=== PATIENT | male | born 1945 | race Caucasian/White ===

== ENCOUNTER → 2019-01-18 11:24 | Outpatient (CLI) | payer MEDICARE, OTHER ==
[2015-12-05 05:56] VITALS: BMI 30.4
[~2019-01-18 11:24] MED LIST: ALPHA LIPOIC; AMLODIPINE-ATO1 EAC9 PO; BAYER ASPIRIN325 MG PO; CITICOLINE PO; CO Q-10150 MG; CO Q-1030 MG; ECOTRIN325 MG PO; FISH OIL 1,0001 CA1 PO; FOLATE0.4 MG PO; GABAPENTIN100 MG PO; MULTIPLE VITAMI1 TA1; NEURONTIN 300300 MG PO; OMEGA-3100 MG; PLAVIX75 MG PO; PRINIVIL20 MG PO; TOPROL XL25 MG PO; TOPROL XL50 MG PO; VITAMIN B COMPL1 TAB; VITAMIN C250 MG PO; VITAMIN D3400 UNI1 PO; VITAMIN E200 UNI1 PO
--- NOTE | 2019-01-24 13:26 | EC ---
PATIENT:OFELIA LR DATE OF SERVICE: 01/18/19 SEX: M MEDICAL RECORD: [id number] DATE OF : 47 LOCATION:[facility] AGE OF PATIENT: 73 ADMISSION DATE: 01/18/19 REFERRING PHYSICIAN: INTERPRETING PHYSICIAN: ASIA RABAGO MD ECHOCARDIOGRAM REPORT ECHO CHARGES 4 ECHO COMPLETE Date: 01/18/19 CLINICAL DIAGNOSIS: CAD/ANGINA/MURMUR HX OF MR/HTN ECHOCARDIOGRAPHIC MEASUREMENTS (adult normal given) AC root (d.<3.7cm) 3.8 cm LV Septum d (<1.2 cm> 1.6 cm Valve Excursion 1.8 cm LV Septum (systole) 2.3 cm Left Atria (s.<4.0cm> 4.0 cm LVPW d(<1.2cm) 2.1 cm RV (d.<2.3cm) 3.4 cm LVPW (sytole) 2.5 cm LV diastole(<5.6CM) 5.3 cm MV E-F(>70mm/sec) cm LV systole 2.8 cm LVOT Diameter 1.9 cm MV exc.(>10mm) 1.3 cm Est.ejection fraction (50-75%) % DOPPLER: LVIT cm/sec A 105 cm/sec E 79.0 cm/sec LA cm/sec RVSP 29 mmHg LVOT 139 cm/sec AOP1/2T m/s Asc. Ao 170 cm/sec RVOT 104 cm/sec RA cm/sec PA 116 cm/sec AV Gradient Peak 11.57mmHg AV Mean 6.66 mmHg AV Area 2.4 cm MV Gradient Peak 4.63 mmHg MV Mean 1.22 mmHg MV Area cm COMMENTS: Lab Engineer: 2 MARICEL JAIN Door Closer Mechanic: 3 Dr. Jackson TAPE# PACS Pericardial Effusion N DATE OF SERVICE: Adequate 2D, color flow imaging, spectral Doppler, and M-Mode LVH is present. LV internal dimensions are normal. Wall motion is normal. EF is greater than or equal to 55%. Aortic valve is sclerosed without evidence of stenosis by Doppler interrogation. Left atrium is normal at 4.8 cm. Mitral valve shows no prolapse. Trace MR. Right-sided chambers are grossly normal. Trace TR. ECHOCARDIOGRAM REPORT [id number] OFELIA LR TRANSINT:[id number] Voice Confirmation ID: [id number] DOCUMENT ID: [id number] ASIA RABAGO MD at 1326 CC: [id number] DICTATION DATE: 01/19/19 131 HUMANITIES PROFESSOR: 01/19/19 1444 [facility]P CLI 01/18/19 [place] [id number] [place] [id number]
== END | disposition home or self-care (01) ==
LOC: D.HCCARDIO 11:24
PROVIDERS: ATTEND Internal Medicine Interventional Cardiology
DX: I25.10 Atherosclerotic heart disease of native coronary artery without angina pectoris (principal)

== ENCOUNTER → 2019-01-20 08:41 | Outpatient (CLI) | payer MEDICARE, OTHER ==
[2015-12-05 05:56] VITALS: BMI 30.4
--- NOTE | ~2019-01-20 | ST ---
PATIENT:OFELIA LR MEDICAL RECORD: [id number] SEX: M LOCATION:[facility] ORDER #: ADMISSION DATE: 01/20/19 AGE OF PATIENT: 73 REFERRING PHYSICIAN: INTERPRETING PHYSICIAN: ROBBIE MENDOZA MD DATE OF SERVICE: 01/20/2019 Nuclear Stress Test INDICATIONS: Angina and coronary artery disease, hypertension, and hyperlipidemia. He was exercised on a standard Lexiscan protocol with 30 mCi of sestamibi injected at peak stress, 9 mCi used previously for rest images. FINDINGS: Gated SPECT reveals a preserved ejection fraction of 64% with good wall motioning, thickening, and brightening throughout all segments. SPECT IMAGING: Cardiolite was used as myocardial fusion agent. There is reversibility anteriorly and apically. This includes basal, mid, apical, and anterior segments as well as the apex itself. The degree of reversibility is mild to moderate. The amount of myocardium involved is moderate. OVERALL IMPRESSION: This is an abnormal nuclear stress test, moderate amount of myocardium at risk anteriorly and apically with reversible ischemia with preserved ejection fraction of 64%, persisting in an intermediate to high risk range due to the amount of myocardium involved and that fact that it is anterior and we would proceed with coronary angiography as a follow-up study. TRANSINT:[id number] Voice Confirmation ID: [id number] DOCUMENT ID: [id number] ROBBIE MENDOZA MD CC: [id number] DICTATION DATE: 01/20/191406 AIR BAG BUILDER: 01/21/19 0344 [facility] CLI 01/20/19 [facility] [address] [place] [address]
== END | disposition home or self-care (01) ==
LOC: D.HCCARDIO 08:41
PROVIDERS: ATTEND Internal Medicine Interventional Cardiology
DX: I25.119 Atherosclerotic heart disease of native coronary artery with unspecified angina pectoris (principal)

== ENCOUNTER 2019-02-07 10:49 | Outpatient (CLI) | payer MEDICARE, OTHER ==
[~2019-02-07] VITALS: Ht 180.3 cm; Wt 102.3 kg
--- NOTE | ~2019-02-07 | HEMODYNAMI ---
PATIENT:OFELIA LR MEDICAL RECORD: [id number] : 47 LOCATION:[facility] ADMISSION DATE: 02/07/19 Generatedon:02/07/201914:36 Patient name: OFELIA LR Patient #: [id number] SSN: : 1945 Date of study: 02/07/2019 Page: Of Hemodynamic Procedure Report Patient Data Patient Demographics Procedure consent was obtained First Name: OFELIA Gender: Male Last Name: ADELINE : 1945 Middle Initial: T Age: 73 year(s) Patient #: [id number] Race: Unknown Additional ID: [id number] Contact details [address]: [address] [place] [address] [address] State: [place] City: [place] Zip code: [address] Past Medical History Allergies: No known allergies Admission Admission Data Admission Date: 02/07/2019 Admission Time: 10:49 Height (in.): 70.87 BSA: 2.21 (m2) Height (cm.): 180 BMI: 31.48 (kg/m2) Weight (lbs.): 224.87 Weight (kg.): 102 Lab Results Lab Result Date: 02/07/2019 Lab Result Time: 0:00 Biochemistry Name Units Result Min Max BUN mg/dl 21 --(----)-* 7 18 Creatinine mg/dl 1.2 --(---*)-- 0.6 1.3 CBC Name Units Result Min Max Hematocrit % 39.6 -*(----)-- 42 54 Hemoglobin g/dl 14 --(*---)-- 13.5 17.5 Procedure Procedure Types Cath Procedure Diagnostic Procedure [facility] w[facility] Procedure Description Procedure Date Procedure Date: 02/07/2019 Procedure Start Time: 14:22 Procedure End Time: 14:33 Procedure Staff Name Function Tra Gonzalez MD Performing Physician Chelsea Howard RT Monitor Ronald Novoa RT Scrub Serina Leiva RN Nurse Keith Malcolm RT Cash Surrender Calculator Procedure Data Cath Procedure Fluoroscopy Diagnostic fluoroscopy Total fluoroscopy Time: 1.5 time: 1.5 min min Diagnostic fluoroscopy Total fluoroscopy dose: 583 dose: 583 mGy mGy Contrast Material Contrast Material Type Amount (ml) Isovue 300 59 Entry Location Entry Primary Successful Side Size Upsize Upsize Entry Closure Mason ccessful Closure Location (Fr) 1 (Fr) 2 (Fr) Remarks Device Remarks Radial Right 6 Fr Mechanical artery Short Compression Estimated blood loss: 5 ml Diagnostic catheters Device Type Used For End Catheter Placement DIAGNOSTIC Berkey 110cm 5 Procedure Fr catheter (211090) Procedure Complications No complications Procedure Medications Medication Administration Route Dosage Oxygen etCO2 Nasal cannula 2 l/min Lidocaine 2% added to field 20 Heparin Flush Bag added to field 2 bags (1000units/500ml NS) 0.9% NaCl I.V. 100 ml/hr Versed I.V. 1 mg Fentanyl I.V. 50 mcg Radial Cocktail I.A. 1 syringe (Verapamil 2mg/Nitro 400mcg/Heparin 1500units) Versed I.V. 1 mg Hemodynamics Rest BSA: 2.21 (m2) HGB: 14 (g/dl) O2 Consumption: Estimated: 238.04 (ml/min) O2 Cons umption indexed: Estimated:107.71 (ml/min/m) Heart Rate: 50 (bpm) Pressure Samples Time Site Value (mmHg) Purpose Heart Use Rate(bpm) 14:24 LV 40/6,4 Snapshot 52 14:24 AO 93/56(71) Pullback 54 14:24 LV 94/3,12 Pullback 54 Gradients Valve Time Site 1 Site 2 Mean SEP/DFP Peak To Heart Use (mmHg) (sec/min) Peak Rate (mmHg) (bpm) Aortic 14:24 LV AO 1 3 1 54 94/3,12 93/56(71) Calculations Valve P-P Mean Valve Index Valve Source Name Gradient Area Flow (cm2) Aortic 1 1 1 1 Snapshots Pre Cath Intra NCS Post Cath Vital Signs Time Heart Resp SPO2 etCO2 NIBP (mmHg) Rhythm Pain Sedation Rate (ipm) (%) (mmHg) Status Level (bpm) 14:17:27 51 16 100 38.3 155/71(123) NSR 0 (11) 10(A) , No pain 14:22:45 51 14 96 0 135/66(109) NSR 0 (11) 9(A) , No pain 14:27:09 54 15 93 27 130/63(104) NSR 0 (11) 9(A) , No pain 14:31:31 53 16 96 0 136/67(100) NSR 0 (11) 10(A) , No pain Medications Time Medication Route Dose Verified Delivered Reason Notes Effectiveness by by 14:17:12 Oxygen etCO2 2 l/min Tra Smalls used for Nasal [facility] Adam Leiva RN procedure cannula 14:17:20 Lidocaine 2% added 20ml Tra Dutta for local to vial [facility] anesthetic field MD BENJAMIN 14:17:27 Heparin Flush added 2 bags Tra Dutta used for Bag to [facility] procedure (1000units/500ml field MD BENJAMIN NS) 14:17:36 0.9% NaCl I.V. 100 Tra Smalls Per ml/hr St Adam Leiva RN physician 14:20:03 Versed I.V. 1 mg Tra Smalls for sedation [facility] Adam Leiva RN, MD 14:20:45 Fentanyl I.V. 50 mcg Tra Smalls for sedation St Adam Leiva RN, MD 14:22:53 Radial Cocktail I.A. 1 Tra Dutta for (Verapamil syringe [facility] vasodilation 2mg/Nitro MD BENJAMIN 400mcg/Heparin 1500units) 14:25:04 Versed I.V. 1 mg Tra Smalls for sedation [facility] Adam Leiva RN, MD Procedure Log Time Note 13:49:31 Signed procedure consent form obtained from patient. 13:49:33 Diagnostic Cath status Elective 13:49:34 Time tracking: Regular hours (M-F 7:00 - 5:00) 13:49:38 Plan of Care:Hemodynamics will remain stable., Cardiac rhythm will remain stable., Comfort level will be maintained., Respiratory function will remain adequate., Patient/ family verbilizes understanding of procedure., Procedure tolerated without complication., Recovers from procedure without complications.. 13:53:34 Ronald WILDER(R) sent for patient. Start room use. 13:54:24 Patient Height : 70.87 inches 13:54:27 Patient Weight : 224.87 lbs 14:04:01 Patient received from Pre/Post Procedure Room to [facility] 1 Alert and oriented. Tansferred to table in Supine position. 14:04:02 Warm blankets applied, and fozia hugger turned on for patient comfort. 14:04:02 Correct patient and procedure confirmed by team. 14:04:03 ECG and BP/O2 sat monitors applied to patient. 14:16:14 Vital chart was started 14:16:16 Baseline sample Acquired. 14:16:20 Rhythm: sinus bradycardia 14:16:21 Full Disclosure recording started 14:16:30 H&P Date Dictated: 01/09/2019 Within 30 days and on chart., H&P Addendum completed by physician on day of procedure. (MUST COMPLETE FOR ALL OUTPATIENTS). 14:16:31 Pre-procedure instructions explained to patient. 14:16:31 Pre-op teaching completed and patient verbalized understanding. 14:16:32 Family in patients room. 14:16:34 Patient NPO since Midnight. 14:16:39 Patient allergic to No known allergies 14:16:41 Is patient on blood thinner?No 14:16:44 Patient diabetic? No. 14:16:46 Previous problem with sedation/anesthesia? No ? 14:16:47 Snore? No 14:16:48 Sleep apnea? No 14:16:50 Deviated septum? No 14:16:51 Opens mouth fully? Yes 14:16:52 Sticks out tongue? Yes 14:17:03 Airway obstruction? No ? 14:17:06 Dentures? No ? 14:17:10 Modified Tesfaye's test Ulnar < 7 seconds 14:17:12 Oxygen 2 l/min etCO2 Nasal cannula was administered by Serina Leiva RN; used for procedure; 14:17:12 Patient pain scale 0/10 ?. 14:17:17 IV patent on arrival in left wrist with 0.9% NaCl at [facility]. 14:17:20 Lidocaine 2% 20ml vial added to field was administered by Tra Gonzalez MD; for local anesthetic; 14:17:27 Heparin Flush Bag (1000units/500ml NS) 2 bags added to field was administered by Tra Gonzalez MD; used for procedure; 14:17:36 0.9% NaCl 100 ml/hr I.V. was administered by Serina Leiva RN; Per physician; 14:18:07 Lab Result : Creatinine 1.2 mg/dl 14:18:07 Lab Result : BUN 21 mg/dl 14:18:07 Lab Result : Hemoglobin 14 g/dl 14:18:07 Lab Result : Hematocrit 39.6 % 14:18:10 Lab results completed and on chart. 14:18:14 Right Radial & Right Groin area was prepped with chlora-prep and draped in sterile fashion 14:18:15 Alarms reviewed by R. N. 14:18:15 Sharps counted by scrub and verified by R.N. 14:18:17 Use device set Radial Dx or PCI 14:18:18 ACIST Syringe (30823) opened to sterile field. 14:18:19 Bag Decanter (2002S) opened to sterile field. 14:18:20 ACIST Manifold (62820) opened to sterile field. 14:18:20 ACIST Hand Control (44005) opened to sterile field. 14:18:22 Tegaderm 4 x 4 (1626W) opened to sterile field. 14:18:23 Medline Cath Pack ([id number]) opened to sterile field. 14:18:23 DIAGNOSTIC WIRE .035 260cm J wire (234653) opened to sterile field. 14:18:24 MBrace Wrist Support ([id number]) opened to sterile field. 14:18:25 SHEATH 6FR Slender (98-5109) opened to sterile field. 14:19:00 --------ALL STOP TIME OUT------ 14:19:03 Final Timeout: patient, procedure, and site verified with staff and physician. All members of the team are in agreement. 14:19:04 Right Radial & Right Groin site verified by team. 14:19:06 Maximum allowable Isovue 300 dose 300ml. Physician notified. (300ml for normal creatinines. For patients with creatinine of 1.7 or higher multiply weight(kg) x 5 divided by creatinine.) 14:19:09 Fire Safety Assessment: A--An alcohol-based skin anteseptic being used preoperatively., C--Open oxygen or nitrous oxide is being used., D--An ESU, laser, or fiber-optic light is being used. 14:19:12 Physical assessment completed. ASA score P 2 - A patient with mild systemic disease as per Tra Gonzalez MD. 14:19:15 Sedation plan: IV Moderate Sedation Medication:Versed, Fentanyl 14:20:03 Versed 1 mg I.V. was administered by Serina Leiva RN; for sedation; 14::45 Fentanyl 50 mcg I.V. was administered by Serina Leiva RN; for sedation; 14::01 Procedure started. 14:22:04 Local anesthetic to right radial artery with Lidocaine 2% by Tra Gonzalez MD.INITIAL ACCESS ONLY 14::49 A 6 Fr Short sheath was inserted into the Right Radial artery 14::52 Zero performed for pressure channel P1 14::53 Radial Cocktail (Verapamil 2mg/Nitro 400mcg/Heparin 1500units) 1 syringe I.A. was administered by Tra Gonzalez MD; for vasodilation; 14:23:13 A DIAGNOSTIC Berkey 110cm 5 Fr catheter (484419) was advanced over the wire and used for Procedure. 14:24:26 LV gram done using ESPINAL 14::29 Injector settings: Ml/sec: 7, Volume: 15, 14:24:32 EF : 55 % 14:24:33 LV hemodynamics recorded. 14:25:04 Versed 1 mg I.V. was administered by Serina Leiva RN; for sedation; 14:25:40 RCA angiography performed. 14::44 LCA angiography performed. 14:27:44 Catheter removed. 14:27:47 Procedure ended.(Physican Out) 14:27:55 TR BAND Standard ([id number]) opened to sterile field. 14:28:51 Sheath removed intact; hemostasis achieved with Mechanical Compression to the Right Radial artery. 14:29:44 Fluoroscopy time 01.50 minutes. 14::49 Fluoroscopy dose: 583 mGy 14::49 Flurop Dose total: 583 14::54 Contrast amount:Isovue 300 59ml. 14:29:55 Sharps counted by scrub and verified by R.N. 14::58 TR band inflated with 10cc of air. 14:30:01 Post-procedure physical assessment completed. ASA score P 2 - A patient with mild systemic disease as per Tra Gonzalez MD. 14:30:06 Post procedure rhythm: sinus bradycardia 14:30:09 Estimated blood loss: 5 ml 14:30:31 Post procedure instruction explained to patient.Patient verbalizes understanding. 14:30:32 Patient needs reinforcement of post procedure teaching. 14:31:24 Procedure and supply charges have been captured, reviewed, submitted and are correct. 14:32:26 Procedure Complication : No complications 14:33:36 Vital chart was stopped 14:33:36 See physician's report for complete and final results. 14:33:37 Report given to Pre/Post Procedure Room. 14:33:40 Patient transfered to Pre/Post Procedure Room with Bed. 14:33:42 Procedure ended. 14:33:42 Full Disclosure recording stopped 14:33:50 End room use (Document Last) Device Usage Item Name Manufacture Quantity Catalog Hospital Part Current Minimal Lot# / Number Charge Number Stock Stock Serial# Code ACIST Acist 1 32321 701883 297388 878806 20 Syringe Medical (86020) Systems Inc Bag Microtek 1 2001S 584123 43858 018954 5 Decanter Medical Inc. () ACIST Acist 1 37666 067504 186390 432047 5 Manifold Medical (04308) Systems Inc ACIST Hand Acist 1 27184 463130 548448 170020 5 Control Medical (40228) Systems Inc Tegaderm 4 3M 1 1626W 419604 011030 997744 5 x 4 (1626W) Medline Medline 1 [id number] 480735 38918 935682 5 Cath Pack ([id number]) DIAGNOSTIC [facility] 1 393200 226435 448427 034586 30 WIRE .035 260cm J wire (848195) MBrace Advanced 1 140-0250-00 818429 41861 604865 5 Wrist Vascular Support Dynamics ([id number]) SHEATH 6FR Terumo 1 [id number] 164502 433619 029564 5 Slender (80-1060) DIAGNOSTIC Terumo 1 40-8643 874832 966854 629726 5 Berkey 110cm 5 Fr catheter (775477) TR BAND Terumo 1 [id number] 643338 951475 040513 40 Standard ([id number]) Signature Audit Graham Stage Time Signature Unsigned Intra-Procedure 02/07/2019 Anita 2:36:26 PM RT(R) Signatures Monitor : Chelsea Howard Signature : RT Date : Time : [facility] [address] [place] [address]
[2019-02-07] MEDS ORDERED: FUROSEMIDE20 MG PO (11:38)
[2019-02-07] MEDS ORDERED: LIPITOR40 MG PO (11:38)
[2019-02-07] MEDS ORDERED: BAYER CHEWABLE81 MG PO (11:39)
[2019-02-07] MEDS ORDERED: IBUPROFEN800 MG PO (11:39)
[2019-02-07 11:47] VITALS: BP 171/69; Ht 180.3 cm; Wt 102.3 kg
[2019-02-07 11:51] LABS: BASOPHILS 0.2 % (0-2); EOSINOPHILS 2.8 % (0-7); HEMATOCRIT 39.6 % (42.0-54.0); IMMATURE GRANULOCYTES 0.2 % (0-5); LYMPHOCYTES 25.8 % (15-50); MCH 31.9 pg (26.0-34.0); MCHC 35.4 g/dL (31.0-37.0); MCV 90.2 fL (80.0-100.0); MEAN PLATELET VOLUME 9.1 fL (7.4-10.4); MONOCYTES 8.5 % (2-11); NEUTROPHILS 62.5 % (40-80); PLATELET COUNT 175 10x3/uL (130-400); RBC 4.39 10x6/uL (4.20-6.10); RDW 12.6 % (11.5-14.5); WBC 5.3 10x3/uL (4.8-10.8)
[2019-02-07 12:35] LABS: ANION GAP 10.3 mmol/L (8-16); CARBON DIOXIDE 30.8 mmol/L (21.0-32.0); CREATININE - SERUM 1.2 mg/dL (0.6-1.3); POTASSIUM - SERUM 4.1 mmol/L (3.5-5.1)
--- NOTE | 2019-02-07 14:45 | NUR ---
PATIENT ARRIVED TO ROOM 4, PLACE ON CM, VSS. RIGHT TR BAND IN PLACE, NO S/S OF BLEEDING OR HEMATOMA. WILL CONTINUE TO MONITOR.
--- NOTE | 2019-02-07 15:00 | NUR ---
PATIENT RESTING, HEAD OF BED AT 30 DEGREES. RIGHT TR BAND IN PLACE, NO S/S OF BLEEDING OR HEMATOMA. VSS ON 2L NC. NO C/O PAIN, NUMBNESS, OR TINGLING. NO N/V.
--- NOTE | 2019-02-07 15:30 | NUR ---
PATIENT AWAKE, SITTING UP IN BED EATING SANDWICH. VSS ON 1L NC. RIGHT TR BAND IN PLACE, NO S/S OF BLEEDING OR HEMATOMA. PHYSICIAN AT BEDSIDE TO UPDATE PATIENT.
--- NOTE | 2019-02-07 15:42 | NUR ---
4CC OF AIR REMOVED FROM TR BAND, NO S/S OF BLEEDING OR HEMATOMA. UPDATED FAMILY VIA PHONE PER PATIENT REQUEST.
--- NOTE | 2019-02-07 16:10 | NUR ---
REMAINING AIR REMOVED FROM TR BAND, NO S/S OF BLEEDING OR HEMATOMA. NO C/O PAIN, NUMBNESS, OR TINGLING. VSS ON ROOM AIR. NO N/V.
--- NOTE | 2019-02-07 16:30 | NUR ---
RIGHT RADIAL DRESSING IS CDI, NO S/S OF BLEEDING OR HEMATOMA. PIV REMOVED. EDUCATION REGARDING DISHCARGE INSTRUCTIONS GIVEN TO PATIENT. PATIENT TRANSPORTED VIA WHEELCHAIR TO CAR WITH FAMILY DRIVING, ALL BELONGINGS WITH PATIENT.
--- NOTE | 2019-02-09 10:26 | OP ---
PATIENT NAME: OFELIA LR MEDICAL RECORD: [id number] :47 LOCATION:D.[facility] ADMISSION DATE: SURGEON: ASIA RABAGO MD DATE OF OPERATION: 02/07/2019 PROCEDURE: Left heart catheterization, selective coronary angiography, right radial approach. CATHETERS: Radial sheath. [place] catheter. The procedure was well tolerated. The patient was returned to navarro. Sheath removed. TR band was placed. FINDINGS: Left ventriculography in 30-degree ESPINAL view: Normal wall motion, normal systolic function. CORONARY ANATOMY: LEFT MAIN: Left main is free of disease. LAD: Free of disease in the diagonal system. CIRCUMFLEX: Previously placed stent is widely patent with no evidence of restenosis. This is a left dominant system giving rise to PDA and is free of disease. There is a small dominant artery with about a 70% mid stenosis too small and insignificant for intervention. IMPRESSION: Widely patent stents, good LV function. Continue medical therapy. TRANSINT:[id number] Voice Confirmation ID: [id number] DOCUMENT ID: [id number] ASIA RABAGO MD at 1026 CC: [id number] DICTATION DATE: 02/07/19 1434 HOME SALES CONSULTANT: 02/07/19 1538 DEP CLI 02/07/19 [place] [id number] [place] [address]
== END 2019-02-07 16:30 ==
LOC: D.CATH 10:49
PROVIDERS: ATTEND Internal Medicine Interventional Cardiology
DX: I25.119 Atherosclerotic heart disease of native coronary artery with unspecified angina pectoris (principal); Z95.5 Presence of coronary angioplasty implant and graft; Z01.812 Encounter for preprocedural laboratory examination

== ENCOUNTER → 2020-03-05 09:11 | Outpatient (CLI) | payer MEDICARE, OTHER ==
[2019-02-07 11:47] VITALS: BMI 31.4
--- NOTE | ~2020-03-05 | EC ---
PATIENT:OFELIA LR DATE OF SERVICE: 03/05/20 SEX: M MEDICAL RECORD: [id number] DATE OF : 47 LOCATION:[facility] AGE OF PATIENT: 74 ADMISSION DATE: 03/05/20 REFERRING PHYSICIAN: INTERPRETING PHYSICIAN: ASIA RABAGO MD ECHOCARDIOGRAM REPORT ECHO CHARGES 4 ECHO COMPLETE Date: 03/05/20 CLINICAL DIAGNOSIS: CAD/MITRAL REGURG ECHOCARDIOGRAPHIC MEASUREMENTS (adult normal given) AC root (d.<3.7cm) 4.2 cm LV Septum d (<1.2 cm> 1.6 cm Valve Excursion 1.5 cm LV Septum (systole) 1.9 cm Left Atria (s.<4.0cm> 3.9 cm LVPW d(<1.2cm) 1.5 cm RV (d.<2.3cm) 3.8 cm LVPW (sytole) 2.0 cm LV diastole(<5.6CM) 4.7 cm MV E-F(>70mm/sec) cm LV systole 2.9 cm LVOT Diameter 1.8 cm MV exc.(>10mm) 1.1 cm Est.ejection fraction (50-75%) % DOPPLER: LVIT cm/sec A 99.0 cm/sec E 112.0 cm/sec LA cm/sec RVSP 37 mmHg LVOT 124 cm/sec AOP1/2T m/s Asc. Ao 167 cm/sec RVOT 82 cm/sec RA cm/sec PA 109 cm/sec AV Gradient Peak 11.14mmHg AV Mean 6.80 mmHg AV Area 1.9 cm MV Gradient Peak 4.84 mmHg MV Mean 1.49 mmHg MV Area cm COMMENTS: Mva Reactor Operator: 2 MARICEL JAIN Leather Goods Sales Representative: 3 Dr. Jackson TAPE# PACS Pericardial Effusion N DATE OF SERVICE: Adequate 2D, color flow imaging, spectral Doppler, and M-Mode. LVH is present. LV internal dimension is normal. Wall motion is normal. EF is greater than or equal to 55%. Aortic valve is sclerotic. There is no evidence of stenosis by Doppler interrogation. Left atrium is normal. Mitral valve shows no prolapse. Trace MR. Right-sided chambers are grossly normal. Mild TR. ECHOCARDIOGRAM REPORT [id number] OFELIA LR TRANSINT:[id number] Voice Confirmation ID: [id number] DOCUMENT ID: [id number] ASIA RABAGO MD CC: [id number] DICTATION DATE: 03/06/20 1005 ACOUSTIC WARFARE ANALYST: 03/06/20 193 DEP CLI 03/05/20 [place] [id number] [place] [address]
[~2020-03-05 09:11] MED LIST changes: +BAYER CHEWABLE81 MG PO; +FUROSEMIDE20 MG PO; +IBUPROFEN800 MG PO; +LIPITOR40 MG PO
== END | disposition home or self-care (01) ==
LOC: D.HCCECHO 09:00
PROVIDERS: ATTEND Internal Medicine Interventional Cardiology
DX: I25.10 Atherosclerotic heart disease of native coronary artery without angina pectoris (principal)